=== PATIENT | male | born 1955 | race Caucasian/White ===

== ENCOUNTER 2021-01-06 08:25 | Day surgery (SDC) | payer OTHER ==
[2021-01-02 12:35] VITALS: BMI 25.7
[2021-01-06 08:55] VITALS: TEMP 98.3
[2021-01-06 10:25] VITALS: BP 113/70; PULSE 67
== END 2021-01-06 10:45 | disposition home or self-care (01) ==
LOC: FASU-ENDO 08:25
PROVIDERS: ATTEND Internal Medicine Gastroenterology
PROC: 0DBN8ZX Excision of Sigmoid Colon, Via Natural or Artificial Opening Endoscopic, Diagnostic (ICD-10-PCS; principal; 2021-01-06 09:33)
DX: Z12.11 Encounter for screening for malignant neoplasm of colon (principal); D12.7 Benign neoplasm of rectosigmoid junction
CPT/HCPCS: 88305-TC